=== PATIENT | female | born 1955 | race Caucasian/White ===

== ENCOUNTER 2016-11-26 15:43 | Inpatient (IN) | payer BC, OTHER ==
[~2016-11-26] VITALS: Ht 162.6 cm; Wt 153.0 kg
[2016-11-26] MEDS ORDERED: SODIUM CHLORIDE FLUSH 10ML SYR IVF ONE (16:30)
[2016-11-26] MEDS ORDERED: PLEASE ENTER ALLERGIES MC SCH ×4 (16:30)
[2016-11-26] MEDS ORDERED: ASPIRIN 81 MG TABLET CHEW PO ONE (16:30)
[2016-11-26 16:38] LABS: ASPARTATE AMINO TRANSFERASE 17 U/L (15-37); BLOOD UREA NITROGEN 11 mg/dL (7-18)
[2016-11-26 16:45] LABS: IS PT STATUS REG ER OR PRE ER? YES
[2016-11-26] MEDS ORDERED: LABETALOL 5MG/ML, 20ML IVPush ONE (17:30)
[2016-11-26] MEDS ORDERED: ASPIRIN 81 MG TABLET CHEW ONE (17:42)
[2016-11-26] MEDS ORDERED: LABETALOL 5MG/ML, 20ML ONE (17:42)
[2016-11-26] MEDS ORDERED: SODIUM CHLORIDE FLUSH 10ML SYR IVF PRN (19:30)
[2016-11-26] MEDS ORDERED: ONDANSETRON 2MG/ML, 2ML IVPush PRN (21:00)
[2016-11-26] MEDS ORDERED: BISACODYL 10 MG SUPP PR PRN (21:00)
[2016-11-26] MEDS ORDERED: POLYETHYLENE GLYCOL 17 GM PACKET PO PRN (21:00)
[2016-11-26] MEDS: HEPARIN 5,000 UNITS/ML, 1ML SQ SCH (22:28)
[2016-11-26] MEDS: hydrALAzine 20 MG/ML, 1ML IV PRN (22:28)
[2016-11-26] MEDS: CARVEDILOL 6.25 MG TABLET PO SCH (22:28)
[2016-11-26] MEDS: SODIUM CHLORIDE FLUSH 10ML SYR IVF SCH (22:29)
[2016-11-26 22:33] VITALS: BP 176/84
[2016-11-26 22:35] VITALS: BP 176/84
[2016-11-26 23:44] VITALS: BP 158/80
[2016-11-27 02:00] VITALS: BP 159/84
[2016-11-27 05:48] VITALS: BP 188/101
[2016-11-27] MEDS: CARVEDILOL 6.25 MG TABLET PO SCH ×2 (05:57→17:17)
[2016-11-27] MEDS: HEPARIN 5,000 UNITS/ML, 1ML SQ SCH ×3 (05:57→22:22)
[2016-11-27] MEDS: hydrALAzine 20 MG/ML, 1ML IV PRN (05:57)
[2016-11-27] MEDS: ACETAMINOPHEN 325 MG TABLET PO PRN ×2 (06:25→10:40)
[2016-11-27 06:26] VITALS: BP 144/77
[2016-11-27 07:19] VITALS: BP 126/76
[2016-11-27] MEDS: CHLORTHALIDONE 25 MG TABLET PO SCH (08:13)
[2016-11-27] MEDS: LISINOPRIL 10 MG TABLET PO SCH (08:14)
[2016-11-27] MEDS: SENNA/DOCUSATE TABLET PO SCH (08:14)
[2016-11-27] MEDS: SODIUM CHLORIDE FLUSH 10ML SYR IVF SCH ×2 (08:14→22:22)
[2016-11-27 14:55] VITALS: BP 120/75
[2016-11-27 18:51] VITALS: BP_SYST 104; BP_SYST 115; BP_DIAS 62; BP_DIAS 71
[2016-11-28] VITALS (8 sets, daily range): BP systolic 137–179; BP diastolic 52–107
[2016-11-28] MEDS: HEPARIN 5,000 UNITS/ML, 1ML SQ SCH ×2 (05:00→15:10)
[2016-11-28] MEDS: CARVEDILOL 6.25 MG TABLET PO SCH (06:00)
[2016-11-28] MEDS: CHLORTHALIDONE 25 MG TABLET PO SCH (08:54)
[2016-11-28] MEDS: LISINOPRIL 10 MG TABLET PO SCH (08:54)
[2016-11-28] MEDS: SODIUM CHLORIDE FLUSH 10ML SYR IVF SCH (08:55)
[2016-11-28] MEDS: SENNA/DOCUSATE TABLET PO SCH (09:00)
[2016-11-28] MEDS ORDERED: METOPROLOL TARTRATE 50 MG TABLET PO SCH (16:00)
[2016-11-28] MEDS ORDERED: METO50TA82 PO (16:02)
[2016-11-28] MEDS ORDERED: LISI-167 PO (16:02)
[2016-11-28] MEDS ORDERED: CHLO25TA PO (16:02)
== END 2016-11-28 17:34 | disposition home or self-care (01) | DRG 305 ==
LOC: ED 19:00 → EDIP 19:17 → ED 20:20 → 4WST 21:51
PROVIDERS: ADMIT Internal Medicine; ATTEND Internal Medicine
DX: I16.0 Hypertensive urgency (principal); Z68.43 Body mass index [BMI] 50.0-59.9, adult; E66.01 Morbid (severe) obesity due to excess calories; R73.03 Prediabetes; G47.33 Obstructive sleep apnea (adult) (pediatric); I10 Essential (primary) hypertension; Z83.3 Family history of diabetes mellitus; Z82.49 Family history of ischemic heart disease and other diseases of the circulatory system
CPT/HCPCS: 36415; 70450; 71010; 80053; 81003; 84484; 85025; 85379; 93005; 93306; 96374; J1644; J0360